=== PATIENT | male | born 1980 | race Caucasian/White ===

== ENCOUNTER 2017-06-30 10:09 | Day surgery (SDC) | payer MEDICAID ==
[2017-06-30 11:37] VITALS: BMI 20.1
[2017-06-30 11:54] VITALS: O2SAT 100
[2017-06-30] MEDS ORDERED: Propofol 10 mg/ml Inj (20 ML) ONE (13:20)
[2017-06-30] MEDS ORDERED: Lidocaine Hydrochloride 5 ML INJ ONE (13:28)
[2017-06-30 14:26] VITALS: TEMP 98.2
[2017-06-30 15:04] VITALS: BP 116/75; PULSE 61; RESP 18
== END 2017-06-30 14:45 | disposition home or self-care (01) ==
LOC: C.ENDO 10:09
PROVIDERS: ATTEND Internal Medicine
DX: K21.9 Gastro-esophageal reflux disease without esophagitis (principal); K44.9 Diaphragmatic hernia without obstruction or gangrene; K29.70 Gastritis, unspecified, without bleeding
CPT/HCPCS: 43239; 88305; J2704